=== PATIENT | female | born 1960 | race Caucasian/White ===

== ENCOUNTER 2020-12-23 07:48 | Day surgery (SDC) | payer OTHER ==
[~2020-12-23] VITALS: Ht 157.5 cm; Wt 75.8 kg
[~2020-12-23 07:48] MED LIST: ACET325 PO; ALEVE220 MG PO; CONEST1.25; CYCL10 PO; HYDACE5 PO; IBUP400 PO; OXYC5; PANT40 PO; PROM25 PO; RIZATRIPTAN10 MG; RXCYCL10 PO; RXHYDACE PO; SERT50 PO
== END 2020-12-23 10:06 | disposition home or self-care (01) ==
LOC: ORSCSDS 07:48
PROVIDERS: Internal Medicine Gastroenterology
PROC: 0DBK8ZX Excision of Ascending Colon, Via Natural or Artificial Opening Endoscopic, Diagnostic (ICD-10-PCS; principal; 2020-12-23 09:00)
PROC: 0DB68ZX Excision of Stomach, Via Natural or Artificial Opening Endoscopic, Diagnostic (ICD-10-PCS; principal; 2020-12-23 09:00)
PROC: 0DB98ZX Excision of Duodenum, Via Natural or Artificial Opening Endoscopic, Diagnostic (ICD-10-PCS; principal; 2020-12-23 09:00)
DX: R19.4 Change in bowel habit (principal); K21.9 Gastro-esophageal reflux disease without esophagitis; D12.2 Benign neoplasm of ascending colon; R10.84 Generalized abdominal pain; K64.1 Second degree hemorrhoids; R14.0 Abdominal distension (gaseous); K29.70 Gastritis, unspecified, without bleeding; Z87.891 Personal history of nicotine dependence; Z79.899 Other long term (current) drug therapy
CPT/HCPCS: 88305; 88342; J2704; J7120